=== PATIENT | male | born 1950 | race Caucasian/White ===

== ENCOUNTER 2019-02-19 11:25 | Inpatient (IN) | payer MEDICARE ==
[2019-02-19] MEDS ORDERED: Iopamidol-370 76% 500 ML 1 ML ONE (11:26)
[2019-02-19 12:02] LABS: Bacteria/HPF None Seen HPF (None Seen); Bilirubin Negative (Negative); Blood, Urine Trace (Negative); Clarity Clear (Clear); Glucose, Urine (Dipstick) Normal (Negative); Leukocyte Negative Leu/uL (Negative); Nitrite Negative (Negative); Protein, Urine (Dipstick) 20 mg/dL (Neg-Trace); RBC/HPF 0-3 HPF (0-3); Squamous Epithelial None Seen HPF (0-3); Urobilinogen Normal mg/dL (Less than 2); WBC/HPF 0-3 HPF (0-3)
[2019-02-19] MEDS ORDERED: Ondansetron PF 4 MG/2 ML Vial ONE (13:10)
[2019-02-19 13:29] LABS: #Basophils 0.1 thou/uL (0.0-0.2); #Eosinphils 0.1 thou/uL (0.0-0.7); #Lymphocytes 1.8 thou/uL (1.20-3.40); #Neutrophils 7.1 thou/uL (1.40-6.50); %Basophils 0.6 % (0.0-1.0); %Eosinophils 0.6 % (0.0-10.0); %Lymphocytes 17.7 % (21.0-51.0); %Neutrophils 71.1 % (42.0-75.0); Hemoglobin 13.7 g/dL (14.0-18.0); Mean Corpuscular HGB CONC 32.7 g/dL (32.0-36.0); Mean Corpuscular Hemoglobin 31.2 pg (27.0-31.0); Mean Corpuscular Volume 95.5 fL (78.0-98.0); Mean Platelet Volume 6.7 fL (7.4-10.4); Platelet Count 416 thou/uL (130-400); RBC Distribution Width 11.9 % (11.5-14.5); Red Blood Cell (RBC) Count 4.37 mill/uL (4.70-6.10)
[2019-02-19 13:49] LABS: ALT (SGPT) 23 U/L (8-55); AST (SGOT) 29 U/L (5-34); Albumin 3.8 g/dL (3.4-4.8); Alkaline Phosphatase 69 U/L (40-110); Anion Gap 13 mmol/L (10-20); BUN (Urea Nitrogen) 8 mg/dL (8.4-25.7); Bilirubin, Total 0.3 mg/dL (0.2-1.2); Calc. Creatinine Clearance 0 mL/min (70-130); Calcium 8.8 mg/dL (7.8-10.44); Carbon Dioxide 27 mmol/L (23-31); Chloride 104 mmol/L (98-107); Estimated GFR-MDRD Greater than 90; Globulin 3.7 g/dL (2.4-3.5); Glucose 94 mg/dL (80-115); Lipase 17 U/L (8-78); Potassium 4.9 mmol/L (3.5-5.1); Protein, Total 7.5 g/dL (5.8-8.1); Sodium 139 mmol/L (136-145)
[2019-02-19] MEDS ORDERED: metroNIDAZOLE 500 MG/100 ML BAG ONE (15:01)
--- NOTE | 2019-02-19 15:24 | CT ---
CT OF ABDOMEN AND PELVIS PERFORMED WITH INTRAVENOUS CONTRAST ENHANCEMENT: HISTORY: Abdominal pain, low-grade fever, and chills. FINDINGS: The lung bases are clear of any infiltrative process. The liver, spleen, pancreas, and gallbladder regions all appear unremarkable. Right and left adrenal glands are normal in appearance. There is a tiny subcentimeter hypodensity wi thin the cortex of the left kidney, most likely a cyst. There is what is probably parapelvic cyst fo rmation on the left. This is less likely related to dilatation to the lower pole portion of the sujata ecting system. There is no significant periaortic or mesenteric adenopathy. CT OF PELVIS PERFORMED WITH CONTRAST ENHANCEMENT: The appendix is normal. There is diverticulitis of the sigmoid colon and there is evidence of a cont ained perforation. There is air present within the fat, but no free air within the abdomen. This is associated with an abscess collection which is fairly deep within the pelvis measuring 2.2 x 5.2 cm. Some mild bladder wall thickening would suggest some element of bladder outlet obstruction. IMPRESSION: Diverticulitis of the sigmoid colon with a contained perforation. Some air is seen within the fat an d a 2.2 x 5.2 cm abscess collection fairly within the midline of the pelvis. Findings telephoned to Dr. Swift. CODE CR POS: [facility]
--- NOTE | 2019-02-19 16:55 | CON ---
DATE OF CONSULTATION: 02/19/2019 HISTORY OF PRESENT ILLNESS: Mr. Gill is a 68-year-old man, who presented to the emergency department today. The patient reports insidious onset of left lower quadrant abdominal pain, which started approximately 10 days ago, for which the patient was seen at the local emergency department. He left the emergency department prior to completion of his workup and presented to his primary care physician 3 days later complaining of residual lower abdominal pain. He was reassured at this time that this may very well be gastroenteritis, which will be self-limiting. Meanwhile, the patient reports persistent lower abdominal pain, now associated with intermittent episodes of fever and chills. He also reports some hematochezia, though no significant large volume blood per rectum. He denies any unexplained weight loss. He denies any melena. PAST MEDICAL HISTORY: He denies any previous medical problems. PAST SURGICAL HISTORY: Pertinent for excision of lipoma in his neck. 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 He used to smoke approximately half a pack to one pack of cigarettes per day and has not smoked over the last 30 years. He used to drink alcohol heavily as well, but has not had any alcohol now for over 15 years. He denies any illicit drug abuse. FAMILY HISTORY: Noncontributory for this patient's age. PRE-HOSPITAL MEDICATIONS: Includes; 1. Tadalafil 5 mg p.o. daily for benign prostatic hypertrophy. 2. He takes Lunesta 3 mg p.o. at bedtime for sleep. ALLERGIES: THE PATIENT DENIES ANY KNOWN DRUG ALLERGIES. REVIEW OF SYSTEMS: Ten-point review of systems essentially unremarkable except as stated in past medical history and chief complaint. PHYSICAL EXAMINATION: GENERAL: This reveals a 68-year-old normally developed man, who is otherwise coherent, interactive, and appears stated age. The patient is alert and oriented x3, appears to be in no acute distress at time of my evaluation. VITAL SIGNS: Currently include blood pressure 115/72, pulse 95, respiratory rate is 16, temperature is 98.6 degrees Fahrenheit, and oxygen saturation is 100% on room air. HEENT: Reveals normocephalic and atraumatic. Pupils are equal, round, and reactive to light and accommodation. HEART: Reveals regular rate and rhythm. No murmurs or gallops auscultated. LUNGS: Clear to auscultation bilaterally. Breathing, regular and nonlabored. ABDOMEN: Soft with left lower quadrant to suprapubic midline abdominal tenderness to palpation. He has no gross rebound tenderness present. Liver and spleen nonpalpable below costal margins. NEUROLOGIC: Reveals no focal deficits present. LABORATORY FINDINGS: Include a CBC with 10,000 white blood cells, hemoglobin and hematocrit 13.7 and 41.8 respectively. Platelet count is 416,000. Metabolic profile; sodium 139, potassium 4.9, chloride is 104, bicarb is 27, BUN 8, creatinine 0.84, glucose 94, total bilirubin 0.3, AST and ALT normal at 29 and 23 respectively. Serum lipase is normal at 17. I have personally reviewed the CT scan of the abdomen and pelvis, which is remarkable for sigmoid colon diverticulosis with adjacent fat stranding signifying acute diverticulitis. There is 2.2 x 5.2 cm abscess in the midline medial to the sigmoid colon within the pelvis, likely secondary to a contained diverticular perforation. IMPRESSION: Acute sigmoid colon diverticulitis with perforation and associated 2.2 x 5.2 cm diverticular abscess. RECOMMENDATIONS: Broad-spectrum antibiotic therapy, percutaneous abscess drainage per Interventional Radiology, failure of which will give consideration to laparoscopic abdominal washout and drainage of the pelvic abscess. There is no acute surgical indication for this patient at this time. The patient will benefit from a 2-week course of antibiotic therapy, which to be completed on outpatient basis. Since this is the first bout of diverticulitis, it is conceivable that this may be the only treatment. However, I have informed the patient that failure of conservative management may warrant operative intervention, which may include sigmoidectomy with temporary colostomy if bowel prep is achievable. The patient has indicated understanding the information I have given him today in the presence of his nurse. I have answered his questions. Thank you again, Dr. Swift, for allowing me the opportunity to participate in the care of this patient. Job ID: [id number]
[2019-02-19] MEDS ORDERED: Acetaminophen 325 MG TAB PO PRN (17:24)
[2019-02-19 18:01] VITALS: BMI 33.2
[2019-02-19] MEDS ORDERED: D5 1/2 NS w/20 mEq KCL 0 ML ONE (19:27)
[2019-02-19] MEDS: Famotidine 20 MG TAB PO SCH (20:09)
[2019-02-19] MEDS: metroNIDAZOLE 500 MG in Premix Bag 1 BAG IVPB SCH (20:09)
--- NOTE | 2019-02-19 22:09 | HP ---
CHIEF COMPLAINT: Abdominal pain. HISTORY OF PRESENT ILLNESS: This patient is a 68-year-old male, who presented via the emergency department. The patient started having symptoms about 9 days ago. Initially had some pain in the lower mid abdomen area, had some intermittent fevers or chills. The pain tends to settle down a bit, but did feel it when he would hit bumps while driving and such. He went to a clinic in [place] initially, but because of insurance issues, did not get the workup. He subsequently went back to [place] to see his primary care provider, who thought maybe he had some food poisoning and put him on some ciprofloxacin. His symptoms have persisted and a couple days of ago, he had a bowel movement with some tinge of blood streaking and therefore he felt like this was a matter that he needed to be more aggressive with and presented to the emergency department today. His pain is not significant at the moment. He denies any nausea or vomiting. He has been only on clear liquids and soups for the past 9 days. He has had fairly regular bowel movements. Otherwise, normal urine output. REVIEW OF SYSTEMS: All other systems reviewed, all pertinent positives and negatives noted in the HPI. PAST MEDICAL HISTORY: Notable for some BPH. PAST SURGICAL HISTORY: Had an excision of a lipoma on the neck. FAMILY HISTORY: His mother lived to almost 103 and his father lived well into his 80s with no significant medical issues. 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 No significant drug use. He does have a history of smoking, but quit over 30 years ago. He has some history of heavy alcohol use, but quit over 15 years ago. He is . He is full code. His would be his surrogate decision maker. ALLERGIES: NONE. CURRENT MEDICATIONS: 1. Lunesta 3 mg at bedtime p.r.n. sleep. 2. Tadalafil 5 mg p.o. daily for BPH. PHYSICAL EXAMINATION: VITAL SIGNS: BP 146/87, pulse 99, respirations 16, temperature is 98.2, O2 saturations 99% on room air. GENERAL APPEARANCE: Age-appropriate male, in no distress. Awake, alert, oriented, pleasant, cooperative. HEENT: PERRL. No acute lesions. NECK: Supple and symmetric. No lymphadenopathy, JVD, or bruits. HEART: Regular rate and rhythm. No murmurs, gallops, or rubs. LUNGS: Clear to auscultation bilaterally with good chest wall expansion and air exchange. ABDOMEN: Soft, nontender, and nondistended. Positive bowel sounds. No masses. No organomegaly. EXTREMITIES: No cyanosis, clubbing, or edema. PSYCHIATRIC: Normal affect and behavior. NEUROLOGIC: No focal deficits with normal spontaneous movement of all extremities. Normal strength. Cranial nerves are functional. LABORATORY DATA: White count 10.0, hemoglobin 13.7, platelets 416. Sodium 139, potassium 4.9, chloride 104, CO2 27, BUN 8, creatinine 0.84, glucose 94, AST 29. ALT is 23. CRP is 8.3, lipase 17. Procalcitonin 0.04. Urinalysis negative. CT abdomen shows diverticulitis of the sigmoid colon with a contained perforation, some air seen within the fat and a 2.2 x 5.2 cm abscess collection fairly within the middle of the pelvis. IMPRESSION AND PLAN: 1. Diverticular abscess of the sigmoid colon, appears to be fairly well contained. The patient has been seen in consultation by Surgery and there is no indication for active surgery. Plan is for conservative management with antibiotics and Interventional Radiology to consider drainage. We will continue with Levaquin and Flagyl. Consult General Surgery to follow. Consult Interventional Radiology to see if we can get a CT-guided drainage of the abscess. 2. History of benign prostatic hyperplasia. Continue home medications as possible. Job ID: [id number]
[2019-02-19] MEDS: HYDROcodone/Acetaminophen 5/325 mg Tablet PO PRN (23:40)
[2019-02-20] MEDS: metroNIDAZOLE 500 MG in Premix Bag 1 BAG IVPB SCH ×4 (03:06→19:56)
[2019-02-20 05:57] LABS: ALT (SGPT) 21 U/L (8-55); AST (SGOT) 17 U/L (5-34); Albumin 3.4 g/dL (3.4-4.8); Alkaline Phosphatase 55 U/L (40-110); Anion Gap 9 mmol/L (10-20); BUN (Urea Nitrogen) 6 mg/dL (8.4-25.7); Bilirubin, Total 0.4 mg/dL (0.2-1.2); Calc. Creatinine Clearance 141 mL/min (70-130); Calcium 8.4 mg/dL (7.8-10.44); Carbon Dioxide 28 mmol/L (23-31); Chloride 108 mmol/L (98-107); Estimated GFR-MDRD Greater than 90; Globulin 2.7 g/dL (2.4-3.5); Glucose 99 mg/dL (80-115); Potassium 3.8 mmol/L (3.5-5.1); Protein, Total 6.1 g/dL (5.8-8.1); Sodium 141 mmol/L (136-145)
[2019-02-20] MEDS: HYDROcodone/Acetaminophen 5/325 mg Tablet PO PRN ×3 (08:03→20:41)
[2019-02-20] MEDS: Famotidine 20 MG TAB PO SCH ×2 (08:05→19:57)
[2019-02-20 09:13] LABS: INR-International Normal Ratio 1.1; PTT 33.6 SEC (22.9-36.1); Prothrombin Time 14.1 SEC (12.0-14.7)
[2019-02-20] MEDS ORDERED: Fentanyl 100 MCG/2 ML VIAL ONE (12:33)
[2019-02-20] MEDS ORDERED: Sodium Bicarbonate 2.5 MEQ/5 ML VIAL ONE (12:33)
[2019-02-20] MEDS ORDERED: Midazolam HCl 2 mg/2 ml Vial ONE (12:33)
--- NOTE | 2019-02-20 14:26 | CT ---
EXAM: CT Peritoneal Abscess Drainage PROVIDED CLINICAL HISTORY: Diverticular abscess. COMPARISON: CT abdomen and pelvis on 02/19/2019 TECHNIQUE: The procedure including the risks and complications were explained to the patient, and informed conse nt was obtained. Conscious sedation was performed with intravenous administration of fentanyl and Versed during the exam. The patient was monitored for approximately 30 minutes without complication. Limited noncontrasted CT scan was obtained through the pelvis. An area was marked and then meticulous ly prepped and draped in usual sterile fashion. Skin and subcutaneous tissues were infiltrated with buffered 1% lidocaine for local anesthesia. A 22-gauge needle was advanced into the collection, and p lacement was confirmed with axial noncontrasted CT images. The needle was exchanged over a 0.018 inch guidewire for a 6 Swazi AccuStick sheath with stiff inner cannula and dilator. The inner dilato r and cannula were removed and positioning was confirmed with axial CT images. The 0.018 inch guidewire was replaced with a 0.035 inch guidewire, and the 6 Swazi AccuStick sheath was removed. Po sitioning was again confirmed with axial noncontrasted CT images. An 8 Swazi tissue dilator was placed followed by placement of an 8 Swazi cope loop all-purpose drainage catheter. The guidewire wa s removed. There was a return of purulent material. Final positioning was confirmed with CT imaging. The catheter was sutured in place utilizing 2-0 Ethilon suture material and placed to gravity drainag e. A dry sterile dressing was placed. The patient tolerated the procedure well and without immediate complication. IMPRESSION: 1. Pelvic abscess collection related to diverticular abscess. 2. Technically successful percutaneous abscess collection drainage with an 8 Swazi cope loop all-pur pose drainage catheter placed. Approximately 23 mL of purulent fluid was aspirated. Specimen was sent for labs.
--- NOTE | 2019-02-20 15:12 | PRG ---
DATE OF SERVICE: 02/20/2019 SUBJECTIVE: Mr. Gill is a 68-year-old man, admitted yesterday with acute sigmoid colon diverticulitis and diverticular abscess. The patient underwent successful CT-guided percutaneous drainage of the abscess. He reports adequate pain control. OBJECTIVE: VITAL SIGNS: Today include blood pressure 107/70, pulse is 92, respiratory rate is 20, temperature is 98.8 degrees Fahrenheit, and oxygen saturation is 96% on room air. HEART: Reveals regular rate and rhythm. No murmurs or gallops auscultated. LUNGS: Clear to auscultation bilaterally. Breathing regular and nonlabored. ABDOMEN: Soft. Moderately distended. Moderate tenderness to palpation in the lower midline and left lower quadrant with no peritoneal signs on examination. NEUROLOGIC: Reveals no focal deficits present. LABORATORY FINDINGS: Today include metabolic profile; sodium 141, potassium 3.8, chloride is 108, bicarb is 28, BUN is 6, creatinine 0.81, and glucose is 99. C-reactive protein yesterday was 8.30. Procalcitonin was normal at 0.04. IMPRESSION AND PLAN: 1. Acute diverticulitis with diverticular abscess, status post CT-guided drainage. 2. Continue with broad-spectrum antibiotic therapy. There remains no acute surgical indication for this patient at this time. General Surgery will continue to follow. Job ID: [id number]
[2019-02-20 17:05] LABS: BF Color Brown; Body Fluid Source Abscess Fluid; Clarity Cloudy/Turbid (Clear); Tube # EDTA
[2019-02-20 17:07] LABS: BF RBC Count - Manual 4500 /cumm; BF WBC/Nonhematics Ct. - Manua 10075000 /cumm
[2019-02-20 19:40] LABS: Cell Count Non Hematic 1 %; Eosinophils 3 %; Lymphocytes 9 %
[2019-02-20 19:43] LABS: Segmented Neutrophils 88 %
--- NOTE | 2019-02-20 21:35 | PDOC.HOSPP ---
- Subjective Encounter Date: 02/20/19 Encounter Time: 07:45 Subjective: no abd pain or bleeding per rectum is npo for CT guided aspiration today - Objective Vital Signs & Weight: Vital Signs (12 hours) Temp Pulse Resp BP Pulse Ox 02/20/19 20:00 97.9 F 84 18 113/73 95 02/20/19 17:16 119/77 02/20/19 16:34 98.4 F 100 20 98/64 96 02/20/19 14:30 97.7 F 89 20 138/85 95 02/20/19 12:23 98.6 F 74 20 101/66 96 Weight Weight 245 lb I&O: 02/19/19 02/20/19 02/21/19 06:59 06:59 06:59 Intake Total 1150 Balance 1150 Result Diagrams: 02/19/19 13:13 02/20/19 05:12 Hospitalist ROS - Medication Medications: Active Medications Generic Name Dose Route Start Last Admin Trade Name Freq PRN Reason Stop Dose Admin Hydrocodone Bitart/Acetaminophen 1 tab 02/19/19 17:24 02/20/19 20:41 [place] 5/325 PO 1 tab Q4H PRN Administration Moderate Pain (4-6) Famotidine 20 mg 02/19/19 21:00 02/20/19 19:57 Pepcid PO 20 mg BID JIMI Administration Metronidazole 500 mg/ Device 100 mls @ 100 mls/hr 02/19/19 21:00 02/20/19 19: 56 IVPB 100 mls 0300,0900,1500,2100 JIMI Administration Levofloxacin 500 mg/ Device 100 mls @ 100 mls/hr 02/20/19 16:00 02/20/19 16: 22 IVPB 100 mls 1600 JIMI Administration - Exam General Appearance: awake alert Eye: PERRL, anicteric sclera ENT: no oropharyngeal lesions, moist mucosa Neck: supple, no JVD Heart: RRR, no murmur Respiratory: no wheezes, no rales Gastrointestinal: soft, non-tender, non-distended, normal bowel sounds Extremities: no cyanosis, no edema Neurological: cranial nerve grossly intact, no focal deficits Psychiatric: normal affect, A&O x 3 Hosp A/P (1) Diverticular disease of intestine with perforation and abscess Code(s): K57.80 - DVTRCLI OF INTEST, PART UNSP, W PERF AND ABSCESS W/O BLEED Status: Acute (2) Melena Code(s): K92.1 - MELENA Status: Resolved (3) Obesity (BMI 30.0-34.9) Code(s): E66.9 - OBESITY, UNSPECIFIED Status: Chronic (4) Insomnia Code(s): G47.00 - INSOMNIA, UNSPECIFIED Status: Chronic Qualifiers: Insomnia type: primary Qualified Code(s): F51.01 - Primary insomnia - Plan is on levaquin and flagyl, ultram prn continue home dose of lunesta had CT guided aspiration of abscess around 25mls, await full culture results diet per gen surgery adv hemostable to ambulate in hallway as tolerated
[2019-02-21] MEDS: metroNIDAZOLE 500 MG in Premix Bag 1 BAG IVPB SCH ×2 (01:53→08:01)
[2019-02-21 06:06] LABS: #Eosinphils 0.1 thou/uL (0.0-0.7); #Lymphocytes 1.7 thou/uL (1.20-3.40); #Monocytes 0.7 thou/uL (0.11-0.59); #Neutrophils 6.2 thou/uL (1.40-6.50); %Basophils 0.4 % (0.0-1.0); %Eosinophils 1.1 % (0.0-10.0); %Neutrophils 71.4 % (42.0-75.0); Hemoglobin 12.9 g/dL (14.0-18.0); Mean Corpuscular HGB CONC 33.2 g/dL (32.0-36.0); Mean Corpuscular Hemoglobin 31.2 pg (27.0-31.0); Mean Corpuscular Volume 93.9 fL (78.0-98.0); Mean Platelet Volume 6.3 fL (7.4-10.4); Platelet Count 386 thou/uL (130-400); RBC Distribution Width 11.7 % (11.5-14.5); Red Blood Cell (RBC) Count 4.13 mill/uL (4.70-6.10); White Blood Cell (WBC) Count 8.7 thou/uL (4.8-10.8)
[2019-02-21 06:30] LABS: Anion Gap 12 mmol/L (10-20); BUN (Urea Nitrogen) 8 mg/dL (8.4-25.7); Calc. Creatinine Clearance 139 mL/min (70-130); Calcium 8.6 mg/dL (7.8-10.44); Carbon Dioxide 25 mmol/L (23-31); Chloride 107 mmol/L (98-107); Estimated GFR-MDRD Greater than 90; Glucose 97 mg/dL (80-115); Potassium 3.7 mmol/L (3.5-5.1); Sodium 140 mmol/L (136-145)
[2019-02-21] MEDS: Famotidine 20 MG TAB PO SCH ×2 (08:00→20:21)
[2019-02-21] MEDS: Saccharomyces boulardii 250 MG CAP PO SCH (09:07)
--- NOTE | 2019-02-21 11:23 | PRG ---
DATE OF SERVICE: 02/21/2019 HISTORY OF PRESENT ILLNESS: Mr. Gill is a 68-year-old man, admitted with acute sigmoid colon diverticulitis with diverticular abscess. The patient is postoperative day #1, status post CT-guided drainage of said abscess. He remains on levofloxacin and metronidazole. Cultures from the aspirate yesterday is remarkable for E coli. PHYSICAL EXAMINATION: VITAL SIGNS: The patient has remained hemodynamically stable and afebrile with current vital signs including a blood pressure of 108/72, pulse 85, respiratory rate is 20, temperature 98.2 degrees Fahrenheit, and oxygen saturation 96% on room air. HEART: Regular rate and rhythm. LUNGS: Clear to auscultation bilaterally. ABDOMEN: Soft with mild lower abdominal tenderness to palpation. Clearly, there is no rebound tenderness present. The abscess drainage bag contains a scant amount of serosanguineous fluid. LABORATORY FINDINGS: CBC with 8700 white blood cells, hemoglobin and hematocrit 12.9 and 38.7 respectively, and platelet count is 386,000. Metabolic profile; sodium 140, potassium 3.7, chloride is 107, bicarb is 25, BUN is 8, creatinine 0.82, and glucose 97. IMPRESSION: 1. Postoperative day #1, status post percutaneous drainage of diverticular abscess. 2. Acute sigmoid colon diverticulitis, appropriately responding to antibiotic therapy. PLAN: 1. Convert antibiotic therapy to oral agents. 2. Increase activity and diet. 3. Anticipate discharge home within the next 24 hours if tolerating p.o. antibiotics and no onset of fever or worsening abdominal pain. Job ID: [id number]
--- NOTE | 2019-02-21 13:26 | PDOC.HOSPP ---
- Subjective Encounter Date: 02/21/19 Encounter Time: 09:45 Subjective: is sitting in chair, no abd pain is tolerating liq diet - Objective Vital Signs & Weight: Vital Signs (12 hours) Temp Pulse Resp BP Pulse Ox 02/21/19 07:55 98.2 F 85 20 108/72 96 Weight Weight 245 lb I&O: 02/20/19 02/21/19 02/22/19 06:59 06:59 06:59 Intake Total 1620 Balance 1620 Result Diagrams: 02/21/19 05:53 02/21/19 05:53 Hospitalist ROS - Medication Medications: Active Medications Generic Name Dose Route Start Last Admin Trade Name Freq PRN Reason Stop Dose Admin Hydrocodone Bitart/Acetaminophen 1 tab 02/19/19 17:24 02/20/19 20:41 [place] 5/325 PO 1 tab Q4H PRN Administration Moderate Pain (4-6) Famotidine 20 mg 02/19/19 21:00 02/21/19 08:00 Pepcid PO 20 mg BID JIMI Administration Saccharomyces Boulardii 250 mg 02/21/19 09:00 02/21/19 09:07 Florastor PO 250 mg DAILY JIMI Administration - Exam General Appearance: awake alert Eye: PERRL, anicteric sclera ENT: no oropharyngeal lesions, moist mucosa Neck: supple, no JVD Heart: RRR, no murmur Respiratory: no wheezes, no rales Gastrointestinal: soft, non-tender, non-distended, normal bowel sounds Gastrointestinal - other findings: drain+ has bloody drainage Extremities: no cyanosis, no edema Neurological: cranial nerve grossly intact, no focal deficits Psychiatric: normal affect, A&O x 3 Hosp A/P (1) Diverticular disease of intestine with perforation and abscess Code(s): K57.80 - DVTRCLI OF INTEST, PART UNSP, W PERF AND ABSCESS W/O BLEED Status: Acute (2) Melena Code(s): K92.1 - MELENA Status: Resolved (3) Obesity (BMI 30.0-34.9) Code(s): E66.9 - OBESITY, UNSPECIFIED Status: Chronic (4) Insomnia Code(s): G47.00 - INSOMNIA, UNSPECIFIED Status: Chronic Qualifiers: Insomnia type: primary Qualified Code(s): F51.01 - Primary insomnia - Plan is on levaquin and flagyl, ultram prn continue home dose of lunesta had CT guided aspiration of abscess around 25mls, await full culture results ( e.coli prelim) reg diet per gen surgery adv hemostable to ambulate in hallway as tolerated
[2019-02-21] MEDS: metroNIDAZOLE 500 MG TAB PO SCH ×2 (15:09→20:21)
[2019-02-21] MEDS: Zolpidem Tartrate 5 MG TAB PO SCH ×2 (20:21→20:23)
[2019-02-22 07:42] VITALS: BP 138/84; TEMP 98.4
[2019-02-22] MEDS: metroNIDAZOLE 500 MG TAB PO SCH ×2 (08:05→15:46)
[2019-02-22] MEDS: Saccharomyces boulardii 250 MG CAP PO SCH (08:05)
[2019-02-22] MEDS: Famotidine 20 MG TAB PO SCH (08:05)
--- NOTE | 2019-02-22 12:17 | PDOC.HOSPP ---
- Subjective Encounter Date: 02/22/19 Encounter Time: 08:40 Subjective: says he had a rough night, feels weak this am ate well, had a bm overnight, no nausea - Objective Vital Signs & Weight: Vital Signs (12 hours) Temp Pulse Resp BP Pulse Ox 02/22/19 07:39 98.4 F 90 16 138/84 96 Weight Weight 245 lb I&O: 02/21/19 02/22/19 02/23/19 06:59 06:59 06:59 Intake Total 1620 1860 Output Total 25 Balance 1620 1835 Result Diagrams: 02/21/19 05:53 02/21/19 05:53 Hospitalist ROS - Medication Medications: Active Medications Generic Name Dose Route Start Last Admin Trade Name Freq PRN Reason Stop Dose Admin Acetaminophen 650 mg 02/19/19 17:24 02/21/19 20:21 Tylenol PO 650 mg Q4H PRN Administration Headache/Fever/Mild Pain (1-3) Hydrocodone Bitart/Acetaminophen 1 tab 02/19/19 17:24 02/20/19 20:41 [place] 5/325 PO 1 tab Q4H PRN Administration Moderate Pain (4-6) Famotidine 20 mg 02/19/19 21:00 02/22/19 08:05 Pepcid PO 20 mg BID JIMI Administration Levofloxacin 500 mg 02/21/19 16:00 02/21/19 16:12 Levaquin PO 500 mg 1600 JIMI Administration Metronidazole 500 mg 02/21/19 15:00 02/22/19 08:05 Flagyl PO 500 mg TID JIMI Administration Saccharomyces Boulardii 250 mg 02/21/19 09:00 02/22/19 08:05 Florastor PO 250 mg DAILY JIMI Administration Zolpidem Tartrate 5 mg 02/21/19 21:00 02/21/19 20:23 Ambien PO Not Given HS JIMI - Exam General Appearance: awake alert Eye: PERRL, anicteric sclera ENT: no oropharyngeal lesions, moist mucosa Neck: supple, no JVD Heart: RRR, no murmur Respiratory: no wheezes, no rales Gastrointestinal: soft, non-tender, non-distended, normal bowel sounds Gastrointestinal - other findings: drain + Extremities: no cyanosis, no edema Neurological: cranial nerve grossly intact, no focal deficits Psychiatric: normal affect, A&O x 3 Hosp A/P (1) Diverticular disease of intestine with perforation and abscess Code(s): K57.80 - DVTRCLI OF INTEST, PART UNSP, W PERF AND ABSCESS W/O BLEED Status: Acute (2) Melena Code(s): K92.1 - MELENA Status: Resolved (3) Obesity (BMI 30.0-34.9) Code(s): E66.9 - OBESITY, UNSPECIFIED Status: Chronic (4) Insomnia Code(s): G47.00 - INSOMNIA, UNSPECIFIED Status: Chronic Qualifiers: Insomnia type: primary Qualified Code(s): F51.01 - Primary insomnia - Plan is on levaquin and flagyl, ultram prn. Drain output was 25ml bloody fluid continue home dose of lunesta had CT guided aspiration of abscess around 25mls, await full culture results ( e.coli prelim) reg diet per gen surgery adv hemostable to ambulate in hallway as tolerated dc plan per gen surg adv.
--- NOTE | 2019-02-22 16:33 | DIS ---
DATE OF ADMISSION: 02/19/2019 DATE OF DISCHARGE: 02/22/2019 DISCHARGE DISPOSITION: Home. PRIMARY DISCHARGE DIAGNOSES: Sigmoid diverticulitis with perforation and contained abscess, status post drainage by Interventional Radiology, has a drainage catheter at the time of discharge. Melena prior to arrival, resolved; obesity; insomnia. PROCEDURES DONE DURING HOSPITALIZATION: The patient has had CT of the abdomen and pelvis done on the day of admission, which showed findings of diverticulitis of the sigmoid colon with a contained perforation. There was a 2.2 x 5.2 cm abscess collection in the pelvis. He has had a CT-guided drainage of the abscess by Interventional Radiology on 02/20/2019 with 23 mL of purulent fluid aspirated. Abdominal fluid aspirated from the abscess is growing E coli along with mixed culture. Final isolation and sensitivities are pending. White count of 8, H and H 12 and 38, platelet count 386. LFTs were within normal limits. CRP was 8.3. Procalcitonin 0.04. DISCHARGE MEDICATIONS: 1. Flagyl 500 mg p.o. three times daily for 2 weeks. 2. Levaquin 500 mg p.o. daily for 2 weeks per General Surgery advice. 3. Motrin p.r.n. for pain. 4. Florastor 250 mg p.o. daily for 20 days. 5. Cialis as before. 6. Eszopiclone 3 mg p.o. at bedtime for insomnia. ALLERGIES: NO KNOWN DRUG ALLERGIES. INPATIENT CONSULT: Dr. Bartholomew for General Surgery. DISCHARGE PLAN: The patient to follow up with Dr. Bartholomew on 03/06/2019 at 02:00 p.m. He needs to follow up with his primary care physician in [place] in 1 week. [facility] has been arranged in [facility]. BRIEF COURSE DURING HOSPITALIZATION: The patient initially came to ER with complaints of abdominal pain with symptoms starting 9 days back. He had melena with solo bleeding prior to arrival. Initial CAT scan obtained showed sigmoid diverticulitis with contained abscess and perforation. He has had consultation with Dr. Bartholomew for General Surgery. Interventional Radiology was consulted and the patient has had CT-guided drainage of the abscess with catheter placed. He still has around 25 mL of serosanguineous fluid coming out of his abdominal catheter from last 24 hours. He has remained hemodynamically stable and is tolerating solid diet. The patient has had bowel movement and is passing flatus as well. He is ambulating on the floor. He is wanting to go home today. He is cleared by Dr. Bartholomew for discharge. He needs to continue antibiotics for [address] Bartholomew's advice. He has a followup appointment to see him on the at 02:[address] Bartholomew's office will call him with the schedule of the CAT scan, which needs to be done prior to him seeing Dr. Bartholomew. Based on the CAT scan findings, he will likely have his abdominal drainage catheter removed in Dr. Bartholomew's office. Please see a [id number] documentation for the day of discharge. Job ID: [id number] [facility]
--- NOTE | 2019-02-22 17:13 | PRG ---
DATE OF SERVICE: 02/22/2019 SUBJECTIVE: Mr. Gill is a 68-year-old male, who has diverticulitis, which caused localized pelvis abscess. He underwent pelvic abscess drainage with radiologist. Postop, the patient has pelvic drainage. It is working and the patient tolerated his diet pretty well. He was put on p.o. antibiotic. The patient ambulates well. He developed no fever or shortness of breath. OBJECTIVE: GENERAL: The patient is lying down in bed comfortable with no acute respiratory distress. VITAL SIGNS: Stable. The pelvic drainage is sanguis in color, limited amount, 15 mL a day. ABDOMEN: Soft, nondistended. Bowel sounds active. ASSESSMENT: 1. Status post percutaneous drainage of diverticulitis abscess. 2. Acute sigmoid colon diverticulitis, responds to antibiotic therapy. PLAN: The patient can be discharged home today with p.o. antibiotics. The patient will see Dr. Bartholomew on March 06 at 2 p.m. with abdominal and pelvis CT scan. The patient is to take medication as directed. The patient was seen and evaluated with Dr. Bartholomew on rounds this morning. Job ID: [id number]
--- NOTE | 2019-02-23 07:50 | PQF ---
CASSI CHINCHILLA VINAYA KUMAR MD [id number] CLINICAL DOCUMENTATION CLARIFICATION FORM: POST DISCHARGE Addendum to original discharge summary date: ____ Late entry note date: __ DATE:02/23/2019 ATTN:SHEN SIMMONS Please exercise your independent, professional judgment in responding to the clarification form. Clinical indicators are provided on the bottom of this form for your review Please check appropriate box(s): [ x] Melena is due to Sigmoid diverticulitis [ ] Melena is not due to Sigmoid diverticulitis [ ] Other diagnosis [ ] Unable to determine For continuity of documentation, please document condition throughout progress notes and discharge summary. Thank You. CLINICAL INDICATORS - SIGNS / SYMPTOMS / LABS He had a bowel movement with some tinge of blood streaking-Documented in H&P on 02/19 by Saran Brar [id number] in Hospitalist progress note on 02/22 by Shen Simmons Sigmoid diverticulitis with perforation and contained abscess-Documented in DS on 02/22 by Shen Simmons He had melena with solo bleeding prior to arrvial-Documented in DS on 02/22 by Shen Simmons RISK FACTORS Sigmoid diverticulitis with perforation and contained abscess-Documented in DS on 02/22 by Shen Simmons TREATMENTS: Status post drainage by interventional radiology-Documented in DS on 02/22 by Shen Simmons Flagyl 500 mg PO-Documented in DS on 02/22 by Shen Simmons (This form is maintained as a part of the permanent medical record) 2014 [employer], [employer]. All Rights Reserved [email or web address] [not provided] MTDD
== END 2019-02-22 16:35 | disposition home or self-care (01) | DRG 379 ==
LOC: ERS 11:25 → T4-B 17:31
PROVIDERS: ADMIT Internal Medicine; ATTEND Internal Medicine
PROC: 0D9N30Z Drainage of Sigmoid Colon with Drainage Device, Percutaneous Approach (ICD-10-PCS; principal; 2019-02-20)
DX: K57.33 Diverticulitis of large intestine without perforation or abscess with bleeding (principal); G47.00 Insomnia, unspecified; N40.0 Benign prostatic hyperplasia without lower urinary tract symptoms; B96.20 Unspecified Escherichia coli [E. coli] as the cause of diseases classified elsewhere; E66.9 Obesity, unspecified; Z68.33 Body mass index [BMI] 33.0-33.9, adult; Z87.891 Personal history of nicotine dependence
CPT/HCPCS: 36415; 49020; 74177; 77002; 80048; 80053; 81003; 81015; 83690; 84145; 85025; 85060; 85610; 85730; 86140; 87070; 87077; 87186; 87205; 89051; 96361; 96365; 96368; 96375; C1729; J1956; J2250; J2405; J3010; Q9967

== ENCOUNTER 2019-03-06 11:14 | Outpatient (CLI) | payer MEDICARE ==
[~2019-03-06 11:14] MED LIST: Iopamidol 370 76% 100 ML VIAL ONE
--- NOTE | 2019-03-06 12:15 | CT ---
CT Abdomen Pelvis W Con: 03/06/2019 12:00 AM CLINICAL INFORMATION: Follow-up abscess drain COMPARISON: 02/19/2019 TECHNIQUE: Multiple contiguous axial images were obtained and a CT of the abdomen and pelvis with IV contrast. Oral contrast was administered. Coronal and sagittal reformats were performed. FINDINGS: Lower Chest: within normal limits. Abdomen: Liver: within normal limits. Bile Ducts: Normal caliber. Gallbladder: No calcified gallstones. Normal caliber wall. Pancreas: within normal limits. Spleen: within normal limits. Adrenals: within normal limits. Kidneys: Stable small left parapelvic cysts Pelvis: Reproductive Organs: No pelvic masses. Ureters: within normal limits. Bladder: within normal limits. Peritoneum: There is a pigtail catheter in the pelvis. No significant residual fluid surrounds this p igtail catheter. There are a few side air adjacent to the catheter which appear extraluminal but adjacent to the sigmoid colon. The previously seen stranding change has improved significantly. Bowel: Normal caliber. Multiple diverticula in the colon. Mesentery and Retroperitoneum: No enlarged mesenteric or retroperitoneal lymph nodes. Vessels: Normal. Abdominal Wall: within normal limits. Bones: Degenerative changes in the spine. IMPRESSION: 1. Significant improvement in the inflammatory change adjacent to the sigmoid colon. The previously s een abscess has been completely evacuated but there are a few foci of air adjacent to the sigmoid colon which appear extraluminal. 2. Left renal cysts
== END 2019-03-06 11:15 | disposition home or self-care (01) ==
LOC: CT 11:14
PROVIDERS: ATTEND Surgery
DX: K57.92 Diverticulitis of intestine, part unspecified, without perforation or abscess without bleeding (principal); N28.1 Cyst of kidney, acquired
CPT/HCPCS: 74177; Q9967